=== PATIENT | male | born 1955 | race Caucasian/White ===

== ENCOUNTER → 2016-05-24 | Day surgery (SDC) | payer OTHER ==
--- NOTE | 2016-05-10 07:04 | HP ---
HISTORY AND PHYSICAL: DATE OF ADMISSION/SURGERY: 05/24/16 - [facility] He is scheduled for surgery on 05/24/16. CHIEF COMPLAINT: Right groin pain and left leg varicose veins. HISTORY OF PRESENT ILLNESS: Tony Madrigal is a 60-year-old male who has a history of right inguinal hernia repair and duct [place] [address] Beal. He also has a history of left inguinal hernia repair as well, but only has complaints on the right. He notes a fullness and pain that radiates to his scrotum on the right side. A CT scan of his abdomen was done and he was found to have right inguinal hernia containing the appendix. The patient also has varicosities of the left lower extremity. He notes pain and heaviness while standing and also cramps at night. A venous duplex scan of the left lower extremity showed the deep system to be normal. The greater saphenous vein diameter at the saphenofemoral junction is 6.5 mm with a reflux time of 2.7 seconds. The greater saphenous vein diameter below the knee is 6.9 mm and above the knee is 6.5 mm. The reflux time above the knee is 3.4 seconds and below the knee is 4.6 seconds. The varicosities derive directly from the greater saphenous vein. The diameter of the varicose veins in the medial leg is 10.1 mm. The short saphenous vein reveals no reflux. Dr. Beal has discussed the nature and course of endoluminal closure and also hernia repair with possible mesh and has discussed the nature and course, also the risks and complications of surgery. These have been reviewed with the patient at his preoperative appointment including, but not limited to infection, bleeding, poor healing, recurrence, DVT. The patient has been given a chance to ask questions. These have been answered. The patient will sign on admission an informed consent for left leg endoluminal closure of the greater saphenous vein with phlebectomies and right inguinal hernia repair with mesh. Dr. Cuello is his family practitioner. PAST MEDICAL HISTORY: He has a history of asthma. He also has digestive discomfort. He has had a history of basal cell. He also has had a history of episodes of blacking out, this was many years ago. He was evaluated and found that he had no heart trouble. He was put on atenolol by his primary care physician and has not that he knows of had any other episodes. PAST SURGICAL HISTORY: Right and left hernia repair, inguinal hernia repair, left knee and right carpal tunnel. MEDICATIONS: 1. Atenolol. 2. Kathryn. 3. Flonase. ALLERGIES: DUST, CATS, POLLEN. FAMILY HISTORY: Father age 67, degenerative nervous system disorder. Mother age 72, colon CA. Sister, breast cancer and ovarian cancer. 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 He had a previous history of tobacco use a pack a day for 25 years and he quit in 1986. He has 1 to 2 alcohol drinks a week. REVIEW OF SYSTEMS: He denied problems with anesthesia. He denied bleeding tendencies. He does not take daily aspirin. PHYSICAL EXAMINATION GENERAL: Tony Madrigal is a 60-year-old male, well developed, well nourished, in no acute distress. VITAL SIGNS: Blood pressure 138/88, pulse is 60. Height 70 inches, weight 175. HEENT: Within normal limits. Teeth are in good repair. Pharynx clear. EOMs intact. Pupils equal, round, reactive to light and accommodation. NECK: Supple. Full range of motion. Thyroid nonpalpable. No cervical adenopathy. SPINE: Normal curvature. No spine or CVA tenderness. CHEST: Lungs clear. HEART: S1, S2. Regular rate and rhythm. No extra heart sounds, murmurs, clicks, or rubs. ABDOMEN: Soft, nontender. Positive bowel sounds. Positive tympany. No masses or organomegaly. NEURO: Alert and oriented x3. The rest of the exam was grossly intact. LOCAL EXAM: Shows discomfort on palpation of the right groin, then the left leg shows bulging varicosities of the left lower extremity. IMPRESSION: Right inguinal hernia and superficial venous reflux disease secondary to an incompetent left greater saphenous vein. PLAN: Same day surgery admission to Dr. Beal's service for left leg endoluminal closure of the greater saphenous vein with phlebectomies and right inguinal hernia [place] [id number]/[facility] #: [id number] [facility] CENTERMila
[~2016-05-24] MED LIST: Buffered Lidocaine 1% SYR 3ML* 3 ML/SYR SYRINGE INTRADERM ONE; Buffered Lidocaine 1% SYR 3ML* 3 ML/SYR SYRINGE ONE; Bupivacaine 0.5% W/EPI SDV* 30 ML VIAL ONE; EPINEPHrine AMP 1 MG/ML ONE; Famotidine TAB* 20 MG ONE; Famotidine TAB* 20 MG PO ONE; Lidocaine 1% INJ* 10 MG/ML 30 ML SDV ONE; Lidocaine 1% MPF* 2 ML VIAL ONE; Lidocaine 2% PF * 5 ML VIAL ONE; Lidocaine 2% PF* 10 ML AMP ONE; Midazolam* 1 MG/ML 2 ML VIAL (2 MG) ONE; Propofol* 10 MG/ML 20 ML BTL IV PUSH ONE; ceFAZolin 2 GM PREMIX (*) 2 GM/50 ML BAG IVPB ONE; fentaNYL* 50 MCG/ML 2 ML VIAL (100 MCG VIAL) ONE
[2016-05-24 11:00] VITALS: BP 130/74
--- NOTE | 2016-05-25 01:26 | OP ---
DATE OF OPERATION: 05/24/16 - [facility] DATE OF : 55 SURGEON: Cristian Beal MD ANESTHESIOLOGIST: Darrius Ayon MD ANESTHESIA: Local plus MAC. PRE-OP DIAGNOSIS: Right inguinal hernia. POST-OP DIAGNOSES: 1. Right inguinal hernia with sliding appendix. 2. Superficial venous reflux disease, left lower extremity secondary to an incompetent left greater saphenous vein. OPERATIVE PROCEDURE: 1. Right inguinal hernia repair with plug mesh technique. 2. Radiofrequency closure, left greater saphenous vein. 3. Microphlebectomies greater than 10, less than 20 incisions ESTIMATED BLOOD LOSS: Less than 20 cc. INDICATIONS: The patient has a right inguinal hernia that is reducible, found to be recurrent and on CT scan had the appendix inside the sac. DESCRIPTION OF PROCEDURE: The patient was placed in a supine position. He was prepped and draped in the usual sterile fashion. He received preoperative antibiotics. Lidocaine 1% was used to infiltrate on the right lower groin area. A transverse incision was made in this area. The incision was carried down through the skin and subcutaneous tissue. Vamshi's fascia was opened. Bleeders were controlled by electrocoagulation. It was difficult to identify the nerves as there was extensive scarring. The cord was identified and isolated in the Frank drain. There was a large defect where the hernia was present. The hernia sac contained a sliding component of appendix itself. We proceeded to open the sac and then opened on each side of the base of the appendix in the mesentery and flipped it back inside the abdomen and then suture ligate the remaining base of the sac and then transcend the sac and dropped the stump. After this was done, the stump was dropped . We then proceeded to place a plug in the area and anchor it in the front angles with 4- 0 Prolene suture, and after this was completed, an onlay mesh was laid over the plug and the Hesselbach triangle with interrupted 2-0 Prolene sutures. After this was completed, the patient was asked to do a sit up. No defects were noted. No weakness were noted. Bleeder was checked and no bleedings were found. At this point, I proceeded to close the subcutaneous tissue with interrupted 4-0 Vicryl suture and the skin was closed with 4-0 Prolene and Steri - Strips. After this was completed and new set of instruments, the patient was separately prepped and draped exposing the left lower extremity to do the vein surgery. Once this was completed, the patient was prepped and draped in the usual sterile fashion. Lidocaine 1% was used to infiltrate on the medial aspect of the left knee area, percutaneous cannulation of the greater saphenous vein was done under ultrasound guidance. Once the small needle and wire were in place, the needle was exchanged for a 7-Martiniquais 11 cm long introducer sheath that was advanced over the wire inside the greater saphenous vein after which we proceeded to remove the introducer and the wire of the sheath was left in place, which was then back bled and flushed with saline. We then proceeded to advance the Fast Track radiofrequency catheter inside the greater saphenous vein , positioning the tip of the catheter 2 cm below the saphenofemoral junction. After this was completed and we completed the tumescent local anesthesia, we then proceeded to activate the radiofrequency unit. The first 7 cm were cycled twice and then a single cycle thereafter delivering a total of 6 cycles to the greater saphenous vein. After this was completed, there was evidence of closure of the treated vein; however, the common femoral vein appeared to be compressible without any abnormalities. We then proceeded to remove the previously marked varicose veins by small incision in a stab avulsion technique. Approximately 10 incisions were performed and after this was completed, incisions were closed with 5-0 Prolene and Steri-Strips. A light pressure dressing was applied to the left lower extremity. The patient tolerated the procedure well and he was taken in good condition to recovery room. [id number]/[facility] #: [id number] SUKH
== END | disposition home or self-care (01) ==
LOC: OREAST 07:28
PROVIDERS: ATTEND Surgery
DX: K40.90 Unilateral inguinal hernia, without obstruction or gangrene, not specified as recurrent (principal); I83.892 Varicose veins of left lower extremity with other complications; J45.909 Unspecified asthma, uncomplicated
CPT/HCPCS: 88300; 88302; A9270-GY; C1781; J0171; J0690; J2001; J2250; J2704; J3010

== ENCOUNTER 2022-06-04 09:21 | Observation (INO) ==
[2022-06-04 23:31] LABS: ABS Eosinophils 0.1 10^3/ul (0-0.6); ABS Lymphocytes 1.1 10^3/ul (1.0-4.8); ABS Monocytes 0.5 10^3/ul (0-0.8); ABS Neutrophils 4.7 10^3/ul (1.5-7.7); Eosinophil % 1.9 %; Hematocrit 35 % (42-52); Hemoglobin 11.8 g/dL (14.0-18.0); Lymphocyte % 16.4 %; Mean Corpuscular HGB Conc 34 g/dL (31-36); Mean Corpuscular Hemoglobin 31 pg (27-31); Mean Corpuscular Volume 93 fL (80-94); Nucleated Red Blood Cells % 0.1; Red Blood Count 3.79 10^6 /uL (4.18-5.48); Red Cell Distribution Width 14 % (10-15); White Blood Count 6.4 10^3/uL (3.5-10.8)
[2022-06-04] MEDS ORDERED: Heparin 5000 UNITS/ML 1 mL VIAL SUBCUT SCH (23:45)
[2022-06-05 00:26] LABS: Albumin 3.8 g/dL (3.2-5.2); Calcium 8.6 mg/dL (8.6-10.3); Potassium 3.8 mmol/L (3.5-5.0); Total Bilirubin 0.9 mg/dL (0.2-1.0)
[2022-06-05 00:28] LABS: Mean Platelet Volume 8.1 fL (7.4-10.4); Platelet Count 67 10^3/uL (150-450)
[2022-06-05 00:31] LABS: Albumin/Globulin Ratio 1.7 (1-3); Globulin 2.2 g/dL (2-4)
[2022-06-05 03:34] LABS: PSA Screening Total 0.388 ng/mL (0-4.000)
[2022-06-05] MEDS ORDERED: Psyllium PAK PO SCH (09:00)
[2022-06-05] MEDS ORDERED: CMCS: Febuxostat 40 mg TAB (NF) PO SCH (09:00)
[2022-06-05 09:21] LABS: Vitamin D Total 25(OH) 21.3 ng/mL (20-50)
[2022-06-05 09:58] LABS: INR 1.07 (0.88-1.18)
[2022-06-05 10:00] LABS: ABS Eosinophils 0.1 10^3/ul (0-0.6); ABS Lymphocytes 0.9 10^3/ul (1.0-4.8); ABS Monocytes 0.4 10^3/ul (0-0.8); ABS Neutrophils 2.7 10^3/ul (1.5-7.7); Eosinophil % 2.6 %; Hematocrit 33 % (42-52); Hemoglobin 11.3 g/dL (14.0-18.0); Lymphocyte % 21.4 %; Mean Corpuscular HGB Conc 34 g/dL (31-36); Mean Corpuscular Hemoglobin 32 pg (27-31); Mean Corpuscular Volume 93 fL (80-94); Mean Platelet Volume 8.2 fL (7.4-10.4); Platelet Count 55 10^3/uL (150-450); Red Blood Count 3.58 10^6 /uL (4.18-5.48); Red Cell Distribution Width 13 % (10-15); White Blood Count 4.1 10^3/uL (3.5-10.8)
[2022-06-05 14:05] VITALS: BP 120/73
[2022-06-05] MEDS ORDERED: Polyethylene Glycol 3350 17 GM PACKET PO SCH ×2 (19:00→21:00)
== END 2022-06-05 14:05 | disposition home or self-care (01) ==
LOC: EDHOLD 09:21 → ED 09:21 → SUATTDRO 23:53 → EDHOLD 06-05 07:56
PROVIDERS: ADMIT Hospitalist; ATTEND Internal Medicine